=== PATIENT | male | born 1950 | race Caucasian/White ===

== ENCOUNTER 2023-10-27 23:10 | Emergency (ER) | payer MEDICARE, MEDICAID ==
[~2023-10-27] VITALS: Ht 172.7 cm; Wt 81.8 kg
[2023-10-27 23:19] VITALS: BP 142/58; TEMP 98; O2SAT 98
[2023-10-28] MEDS: QUEtiapine FUMARATE 50MG TAB PO ONE (04:56)
[2023-10-28] MEDS: SUMAtriptan SUCCINATE 6MG/0.5ML VIAL SC ONE (04:56)
[2023-10-28] MEDS: rOPINIRole 0.25 MG TAB(REQUIP) PO ONE (04:57)
== END 2023-10-28 05:06 | disposition home or self-care (01) ==
LOC: M ED 23:10
DX: Z76.0 Encounter for issue of repeat prescription (principal); I10 Essential (primary) hypertension; F31.9 Bipolar disorder, unspecified; F17.200 Nicotine dependence, unspecified, uncomplicated; Z88.0 Allergy status to penicillin; Z88.5 Allergy status to narcotic agent
CPT/HCPCS: 96372; 99283; J3030